=== PATIENT | female | born 1995 | race Caucasian/White ===

== ENCOUNTER 2018-10-16 15:13 | Emergency (ER) | payer OTHER ==
[~2018-10-16] VITALS: Ht 170.2 cm; Wt 56.7 kg
[2018-10-16 15:25] VITALS: BP_SYST 122
--- NOTE | 2018-10-16 15:30 | NUR ---
Patient triaged and placed in waiting room. VSS and patient appears in no acute distress at this time. Accompanied by friend, awaiting available bed, and MD notified of need for MSE.
--- NOTE | 2018-10-16 15:55 | NUR ---
Patient to ER bed 4 to gown for evaluation. Side rails up. Report given to Jarrod.
--- NOTE | 2018-10-16 16:10 | NUR ---
Pt presents to ER c/o abdominal pain 6/10 on pain scale. Pt reports that she took an pill today around noon, and shortly after is when she began to experience abdominal pain and nausea / vomiting. Pt denies any other symptoms at this time. Pt AOX4, speaking full sentences, wheeled into ER bed 4 normally ambulate but difficulty at the moment due to pain.
--- NOTE | 2018-10-16 16:20 | NUR ---
# 20 gauge angiocath placed to RAC. Use of asceptic technique. Opsite placed over site. Blood return noted. Flushed with 10 cc of normal saline. No evidence of infiltration noted. Patient tolerated well.
[2018-10-16 16:27] LABS: CALCIUM 9.6 mg/dL (8.4-11.0); CREATININE 0.83 mg/dL (0.55-1.30); POTASSIUM 4.5 mmol/L (3.5-5.1)
[2018-10-16 16:40] LABS: PROTHROMBIN TIME 10.3 SECS (9.5-12.5)
[2018-10-16 16:53] LABS: TOTAL BILIRUBIN 0.4 mg/dL (0.0-1.0)
[2018-10-16 17:06] LABS: HEMATOCRIT 40.5 % (36-48); HEMOGLOBIN 13.7 g/dL (12.0-16.0); MEAN CORPUSCULAR HEMOGLOBIN 31 pg (27-31); MEAN CORPUSCULAR HGB CONC 34 % (32-36); MEAN CORPUSCULAR VOLUME 91 fL (79.0-98.0); PLATELET COUNT (AUTO) 342 K/uL (130-430); RED BLOOD CELL COUNT(AUTO) 4.44 MIL/uL (4.2-6.2); WHITE BLOOD COUNT (AUTO) 19.2 K/uL (4.8-10.8)
[2018-10-16 17:35] LABS: BASOPHILS # (AUTO) 0.1 K/uL (0.0-0.2); BASOPHILS % (AUTO) 0.1 % (0.0-2.0); EOSINOPHILS % (AUTO) 0.2 % (0.0-4.0); LYMPHOCYTES # (AUTO) 1.9 K/uL (1.0-5.5); LYMPHOCYTES % (AUTO) 10.1 % (20.5-51.5); MONOCYTES # (AUTO) 0.8 K/uL (0.0-1.0); MONOCYTES % (AUTO) 4.4 % (1.7-9.3); NEUTROPHILS # (AUTO) 16.5 K/uL (1.8-7.7); NEUTROPHILS % (AUTO) 85.2 % (40.0-70.0)
--- NOTE | 2018-10-16 17:45 | NUR ---
ER Dr. Major at bedside examining patient.
[2018-10-16] MEDS: ONDANSETRON HCL 4 MG/2 ML VIAL IVP ONE (18:03)
[2018-10-16] MEDS: NACL 0.9% 1,000 ML IV ONE (18:04)
--- NOTE | 2018-10-16 18:20 | NUR ---
Ultrasound at bedside.
[2018-10-16] MEDS: MORPHINE 4 MG/ML INJ. SYRINGE IVP ONE (19:11)
--- NOTE | 2018-10-16 19:15 | NUR ---
Pt wheeled to [facility].
[2018-10-16 19:24] LABS: BILIRUBIN,URINE NEGATIVE (NEGATIVE); BLOOD, URINE 3+ (NEGATIVE); CLARITY/URINE CLEAR (CLEAR); COLOR,URINE YELLOW (YELLOW); GLUCOSE,URINE NEGATIVE (NEGATIVE); KETONES,URINE 3+ (NEGATIVE); PROTEIN URINE TRACE (NEGATIVE)
[2018-10-16 19:25] LABS: LEUKOCYTE ESTERASE ,URINE NEGATIVE (NEGATIVE); NITRITE, URINE NEGATIVE (NEGATIVE); UROBILINOGEN,URINE 0.2 (0.2-1.0)
[2018-10-16 19:43] LABS: BACTERIA,URINE FEW /HPF (None Seen); RBC,URINE 20-50 /HPF (0-3); WBC,URINE 0-3 /HPF (0-3)
[2018-10-16 19:44] LABS: MUCUS,URINE 2+ /LPF (None Seen)
[2018-10-16 22:10] VITALS: BP_SYST 111
--- NOTE | 2018-10-16 22:10 | NUR ---
dPatient given written and verbal discharge instructions and verbalizes understanding. ER Dr Des FIELD discussed with patient the results and treatment provided. Patient in stable condition. ID arm band removed. IV catheter removed intact and dressing applied, no active bleeding. Rx of zofran given. Patient educated on pain management and to follow up with PMD. Pain Scale . Opportunity for questions provided and answered. Medication side effect fact sheet provided.
== END 2018-10-16 22:10 | disposition home or self-care (01) ==
LOC: SED 15:13
DX: O03.9 Complete or unspecified spontaneous abortion without complication (principal); Z3A.12 12 weeks gestation of pregnancy
CPT/HCPCS: 36415; 76801; 76817; 80053; 81000; 84702; 85025; 85610; 85730; 96361; 96374; 96375; 99284; J2270; J2405; J7030